=== PATIENT | female | born 1990 | race Caucasian/White ===

== ENCOUNTER 2019-10-18 04:30 | Emergency (ER) | payer BC, SELFPAY ==
[2019-10-18 04:30] VITALS: BP 121/73; PULSE 78; RESP 20; TEMP 36; O2SAT 95
--- NOTE | 2019-10-18 04:51 | ED.GENADULT ---
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 She started feeling poorly a few days ago with a fever up to 101. Tonight she started having urinary frequency, with dysuria and hematuria as well as some tenderness in her left flank and some suprapubic tenderness. No nausea, vomiting, CP, SOB or diarrhea. No trauma. Related Data Home Medications Medication Instructions Recorded Confirmed bupropion HCl [Wellbutrin SR] 150 mg PO DAILY 10/18/19 10/18/19 escitalopram oxalate [Lexapro] 20 mg PO DAILY 10/18/19 10/18/19 Allergies Allergy/AdvReac Type Severity Reaction Status Date / Time No Known Allergies Allergy Verified 10/18/19 04:51 Review of Systems Constitutional: Constitutional: Reports chills and Reports fever(s) Eyes: Eyes: Reports no additional eye complaints ENT: Reports system reviewed and no additional complaints, except as documented Cardiovascular: Cardiovascular: Reports no additional cardiovascular complaints Respiratory: Respiratory: Reports no additional respiratory complaints Gastrointestinal: Gastrointestinal: Reports as per HPI Genitourinary: Genitourinary: Reports as per HPI Musculoskeletal: Musculoskeletal: Reports no additional musculoskeletal complaints Integumentary/Breasts: Skin/Breast: Reports system reviewed and no additional complaints, except as docu Neurologic: Reports system reviewed and no additional complaints, except as documented Psychiatric: Psychiatric: Reports no additional psychiatric complaints Exam Const: General: no acute distress and alert Orientation/consciousness: patient oriented x3 Limitations: No altered mental status Other: Sitting comfortably on the bed without signs of distress HENMT: Other: normocephalic, atraumatic Eyes: Conjunctivae: conjunctivae normal Pupils: Equal, round and reactive pupils present Neck: Neck: normal visual inspection Resp: Effort & Inspection: normal respiratory effort, not labored and not tachypneic Auscultation: clear to auscultation bilaterally Cardio: Rate: regular rate Rhythm: regular rhythm Heart sounds: no murmurs GI: GI Palp: Yes Soft to palpation and No Tenderness to palpation present (GI) Skin: General skin exam: normal color Rashes: no rashes Neuro: General: patient oriented x3 and moves all extremities Extrem: General: normal to inspection Psych: Mental Status: mental status grossly normal Course Course Emergency Course: Linda was seen and evaluated. Ordered UA. UA showed 3+ blood, WBC, and leukocyte esterase as well as bacteria. She was given keflex 500mg in the ED and a script was sent for keflex 500mg QID. She was given return precautions and discharged. Vital Signs Vital signs: Vital Signs Temperature 36.0 C L 10/18/19 04:30 Pulse Rate 78 10/18/19 04:30 Respiratory Rate 20 10/18/19 04:30 Blood Pressure 121/73 10/18/19 04:30 Pulse Oximetry 95 10/18/19 04:30 Temperature 36.0 C L 10/18/19 04:30 Pulse Rate 78 10/18/19 04:30 Respiratory Rate 20 10/18/19 04:30 Blood Pressure 121/73 10/18/19 04:30 Pulse Oximetry 95 10/18/19 04:30 Medical Decision Making MDM Narrative Medical decision making narrative: While she did have some tenderness in the flank she was not in severe pain so I believe utetero or nephrolithiasis is unlikely. She was treated with QID dosing as she may have pyelonephritis as well as cystitis. Vital Signs Vital Signs: Vital Signs Temperature 36.0 C L 10/18/19 04:30 Pulse Rate 78 10/18/19 04:30 Respiratory Rate 20 10/18/19 04:30 Blood Pressure 121/73 10/18/19 04:30 Pulse Oximetry 95 10/18/19 04:30 Temperature 36.0 C L 10/18/19 04:3
[2019-10-18 04:54] LABS: Add Urine Microscopic? YES; Appearance Urine Cloudy (Clear); Bilirubin Urine Negative (Negative); Blood Urine 3+ (Negative); Color Urine Straw (Yellow); Glucose Urine UA Negative (Negative); Ketones Urine Negative (Negative); Leukocyte Esterase Ur 3+ (Negative); Nitrate Urine Negative (Negative); Protein Urine 1+ (Negative); Urobilinogen Urine 0.2 mg/dL (0.2-1.0)
[2019-10-18 04:59] LABS: RBC Urine >75 /hpf (0-2)
[2019-10-18 05:00] LABS: Squamous Epithelial Cell Urine Few /hpf (Few); WBC Urine >75 /hpf (0-3)
[2019-10-18 05:01] LABS: Bacteria Urine 2+ /hpf
[2019-10-18 05:10] VITALS: TEMP 36
[2019-10-18] MEDS: CEPHALEXIN 500 MG CAPSULE PO (05:10)
== END 2019-10-18 05:13 | disposition home or self-care (01) ==
PROVIDERS: Emergency Provider Family Medicine; PCP Internal Medicine
DX: N39.0 Urinary tract infection, site not specified (principal)
CPT/HCPCS: 81001; 99283; A9270

== ENCOUNTER 2019-10-21 11:29 | Outpatient (CLI) | payer BC, SELFPAY ==
--- NOTE | ~2019-10-21 | US_ITS ---
EXAMINATION: US retroperitoneal comp DATE: 10/21/2019 11:57 INDICATION: Painful hematuria TECHNIQUE: Multiple ultrasound grayscale images of the kidneys were obtained. COMPARISON: None. FINDINGS: The right kidney measures 11.0 x 3.9 x 5.9 cm. The left kidney measures 11.7 x 4.4 x 5.7 cm. The kidn eys demonstrate normal echogenicity. There is no hydronephrosis in either kidney. No stones identifi ed. The bladder is decompressed which limits evaluation. IMPRESSION: 1. Normal kidneys without hydronephrosis. Reviewed, dictated and finalized at location A.
== END 2019-10-21 11:30 | disposition home or self-care (01) ==
PROVIDERS: PCP Internal Medicine; Visit Provider Internal Medicine
DX: R31.9 Hematuria, unspecified (principal)
CPT/HCPCS: 76770

== ENCOUNTER 2020-04-06 11:58 | Outpatient (CLI) | payer BC, SELFPAY ==
[2020-04-06 23:09] LABS: SARS-CoV-2 RNA PCR Negative
== END 2020-04-06 11:59 | disposition home or self-care (01) ==
LOC: CHSLAB 12:02
PROVIDERS: PCP Internal Medicine; Visit Provider Clinical Nurse Specialist
DX: R50.9 Fever, unspecified (principal); Z20.828 Contact with and (suspected) exposure to other viral communicable diseases
CPT/HCPCS: 87635; C9803; U0003

== ENCOUNTER 2020-07-04 13:24 | Outpatient (CLI) | payer BC, SELFPAY ==
[2020-07-04 14:03] LABS: SARS-CoV-2 Ag Negative (Negative)
== END 2020-07-04 13:25 | disposition home or self-care (01) ==
LOC: CHSLAB 13:27
PROVIDERS: PCP Internal Medicine; Visit Provider Internal Medicine
DX: Z20.828 Contact with and (suspected) exposure to other viral communicable diseases (principal)
CPT/HCPCS: 87426; C9803

== ENCOUNTER 2020-07-11 17:10 | Outpatient (CLI) | payer BC, SELFPAY ==
[2020-07-11 17:55] LABS: SARS-CoV-2 Ag Negative (Negative)
== END 2020-07-11 17:11 | disposition home or self-care (01) ==
LOC: CHSLAB 17:12
PROVIDERS: PCP Internal Medicine; Visit Provider Internal Medicine
DX: Z20.822 Contact with and (suspected) exposure to COVID-19 (principal)
CPT/HCPCS: 87426; C9803

== ENCOUNTER 2020-12-13 18:47 | Outpatient (CLI) | payer BC, SELFPAY ==
[2020-12-13 20:33] LABS: SARS-CoV-2 RNA PCR Negative (Negative)
== END 2020-12-13 18:48 | disposition home or self-care (01) ==
LOC: CHSLAB 18:51
PROVIDERS: PCP Internal Medicine; Visit Provider Nurse Practitioner Family
DX: J06.9 Acute upper respiratory infection, unspecified (principal); Z20.822 Contact with and (suspected) exposure to COVID-19
CPT/HCPCS: C9803; U0003; U0005

== ENCOUNTER 2021-07-14 12:11 | Outpatient (CLI) | payer BC, SELFPAY ==
--- NOTE | ~2021-07-14 | US_ITS ---
EXAMINATION: US pelvic complete w TV EXAM DATE: 07/14/2021 12:44 INDICATION: Right fullness right adnexal fullness. TECHNIQUE: Pelvic transabdominal and transvaginal sonogram was performed. There are multiple graysca le and Doppler images available for interpretation. Comparison is made to prior examination from 12/27. FINDINGS: Uterus measures 8.1 x 3.6 x 4.9 cm, and is morphologically normal. Endometrial stripe shobha sures 10 mm, within normal limits. There is no free pelvic fluid. Right adnexa: The ovary measures 4.8 x 2.4 x 2.3 cm and is morphologically normal, contains the domin ant physiologic follicle measuring 2.4 cm. Ovarian vascular flow confirmed. Left adnexa: The ovary is not identified. There is no adnexal mass. IMPRESSION: 1. Unremarkable pelvic ultrasound exam. Reviewed, dictated and finalized at location A. 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
== END 2021-07-14 12:12 | disposition home or self-care (01) ==
LOC: CHSIMG 12:12
PROVIDERS: PCP Internal Medicine; Visit Provider Obstetrics & Gynecology
DX: R19.00 Intra-abdominal and pelvic swelling, mass and lump, unspecified site (principal)
CPT/HCPCS: 76830; 76856

== ENCOUNTER 2021-08-02 11:46 | Outpatient (CLI) | payer BC, SELFPAY ==
[2021-08-02 12:42] LABS: SARS-CoV-2 RNA PCR Negative (Negative)
== END 2021-08-02 11:47 | disposition home or self-care (01) ==
LOC: CHSLAB 11:47
PROVIDERS: PCP Internal Medicine; Visit Provider Internal Medicine
DX: J06.9 Acute upper respiratory infection, unspecified (principal); Z20.822 Contact with and (suspected) exposure to COVID-19
CPT/HCPCS: C9803; U0003; U0005

== ENCOUNTER 2021-10-18 11:51 | Outpatient (CLI) | payer BC, SELFPAY ==
--- NOTE | ~2021-10-18 | XR_ITS ---
EXAMINATION: XR thoracic spine 3V DATE: 10/18/2021 12:18 INDICATION: Mid back pain TECHNIQUE: AP, lateral and lateral swimmer's views of the thoracic spine were obtained. COMPARISON: None. FINDINGS: There is no fracture, dislocation, or subluxation. The vertebral body heights, alignment, a nd intervertebral disc spaces are normal. The paravertebral soft tissues are unremarkable. IMPRESSION: 1. Unremarkable thoracic spine. Reviewed, dictated and finalized at location F.
== END 2021-10-18 11:52 | disposition home or self-care (01) ==
LOC: CHSIMG 11:52
PROVIDERS: PCP Internal Medicine; Visit Provider Internal Medicine
DX: M54.6 Pain in thoracic spine (principal)
CPT/HCPCS: 72072

== ENCOUNTER 2022-01-05 10:04 | Outpatient (CLI) | payer BC, SELFPAY ==
--- NOTE | ~2022-01-05 | CT_ITS ---
EXAMINATION: CT soft tissue neck w con DATE: 01/05/2022 11:08 INDICATION: Dysphagia, abscess of the throat TECHNIQUE: Computed tomography (CT) of the neck was performed with 75 cc of Omnipaque 350 intravenous contrast. The dose-length product (DLP) was 341.62 mGy-cm. Automated exposure control and iterative reconstruction technique were employed. COMPARISON: None FINDINGS: No abscess is identified. There is mild cervical lymphadenopathy. The thyroid gland is unre markable. The submandibular and parotid glands are symmetric. There are no masses identified. The vas culature is patent. The airway is unremarkable. There are no osseous abnormalities. The orbits are un remarkable. The superior mediastinum is unremarkable. Visualized sinuses and mastoid air cells are we ll aerated. IMPRESSION: 1. No abscess identified. 2. Mild cervical lymphadenopathy, likely reactive. Reviewed, dictated and finalized at location B.
[2022-01-05 10:39] LABS: Basophils Absolute Auto 0.02 K/mm3 (0.00-0.10); Basophils Percent Auto 0.2 % (0.0-1.0); Eosinophils Absolute Auto 0.04 K/mm3 (0.02-0.50); Eosinophils Percent Auto 0.4 % (1.0-6.0); Hematocrit 35.4 % (35.0-49.0); Hemoglobin 11.6 g/dL (12.0-15.0); Immature Granulocyte Absolute 0.02 K/mm3 (0.00-0.00); Immature Granulocyte Percent A 0.2 % (0.0-0.0); Lymphocytes Absolute Auto 0.95 K/mm3 (1.10-4.50); Lymphocytes Percent Auto 10.4 % (18.0-42.0); Mean Corpuscular HGB Conc 32.8 g/dL (32.0-36.0); Mean Corpuscular Hemoglobin 28.2 pg (27.0-31.0); Mean Corpuscular Volume 85.9 fL (78.0-102.0); Mean Platelet Volume 9.1 fl (9.2-11.8); Monocytes Absolute Auto 0.73 K/mm3 (0.10-0.90); Neutrophils Absolute Auto 7.3 K/mm3 (1.7-7.2); Neutrophils Percent Auto 80.8 % (50.0-70.0); Platelet Count Result 246 K/mm3 (150-420); Red Blood Count 4.12 M/mm3 (4.20-5.40); Red Cell Distribution Width 13.5 % (11.6-14.4); White Blood Count 9.1 K/mm3 (4.8-10.8)
[2022-01-05 10:48] LABS: Alanine Aminotransferase 13 U/L (14-59); Albumin Level 3.6 g/dL (3.4-5.0); Alkaline Phosphatase 61 U/L (46-116); Anion Gap 11 mmol/L (8-16); Aspartate Amino Transferase 10 U/L (15-37); Bilirubin,Total 0.3 mg/dL (0.00-1.00); Blood Urea Nitrogen 11 mg/dL (7-18); Calcium 8.9 mg/dL (8.5-10.1); Carbon Dioxide 23 mmol/L (21-32); Chloride 102 mmol/L (98-108); Estimated Glomerular Filt Rate > 60; Glucose 200 mg/dL (70-99); Osmolality Calculated 287 mOsm/kg (285-295); Potassium 3.6 mmol/L (3.5-5.1); Sodium 136 mmol/L (136-145); Total Protein 7.3 g/dL (6.4-8.2)
[2022-01-05 11:06] LABS: Influenza A QL RT-PCR Negative (Negative); Influenza B QL RT-PCR Negative (Negative); SARS-CoV-2 RNA PCR Negative (Negative)
[2022-01-05 12:19] LABS: Hemoglobin A1C 5.5 % (<5.7)
== END 2022-01-05 10:05 | disposition home or self-care (01) ==
PROVIDERS: PCP Internal Medicine; Visit Provider Internal Medicine
DX: J39.1 Other abscess of pharynx (principal); Z20.822 Contact with and (suspected) exposure to COVID-19; R73.01 Impaired fasting glucose
CPT/HCPCS: 70491; 80053; 83036; 85025; 87040; 87081; 87502; 87880; C9803; Q9967; U0003; U0005

== ENCOUNTER 2022-01-06 10:04 | Outpatient (CLI) | payer BC, SELFPAY ==
--- NOTE | 2022-01-06 10:25 | PC.NURSE ---
rocephin 2 gram divided in 2 doses given in right and left hip, tolerated well
[2022-01-06] MEDS: cefTRIAXone 1 GM VIAL 2 GM IM (10:32)
[2022-01-06] MEDS: LIDOCAINE HCL 1% LOCAL INJ 10 ML VIAL 2.1 ML INFILTRATE (10:32)
--- NOTE | 2022-01-06 10:34 | PC.NURSE ---
dishcarge to home, denies needs,
== END 2022-01-06 10:05 | disposition home or self-care (01) ==
LOC: CHSTREATRM 10:05
PROVIDERS: PCP Internal Medicine; Visit Provider Internal Medicine
DX: J02.9 Acute pharyngitis, unspecified (principal)
CPT/HCPCS: 96372; J0696

== ENCOUNTER 2022-01-07 09:26 | Outpatient (CLI) | payer BC, SELFPAY ==
[2022-01-07] MEDS: cefTRIAXone 1 GM VIAL 2 GM IM (10:04)
[2022-01-07] MEDS: LIDOCAINE HCL 1% LOCAL INJ 10 ML VIAL 2.1 ML INFILTRATE (10:04)
== END 2022-01-07 09:27 | disposition home or self-care (01) ==
LOC: CHSTREATRM 09:28
PROVIDERS: PCP Internal Medicine; Visit Provider Internal Medicine
DX: J02.9 Acute pharyngitis, unspecified (principal)
CPT/HCPCS: 96372; J0696

== ENCOUNTER 2022-03-26 11:09 | Outpatient (CLI) | payer BC, SELFPAY ==
--- NOTE | ~2022-03-26 | XR_ITS ---
EXAMINATION: XR lumbar spine 2-3V DATE: 03/26/2022 11:34 INDICATION: Low back pain TECHNIQUE: Anteroposterior and lateral views of the lumbar spine, and cone-down lateral view of the l umbosacral junction were obtained. COMPARISON: 02/19/2013 FINDINGS: Bone alignment is normal. There is no fracture. The vertebral body heights and intervertebr al disc spaces are normal. Spina bifida occulta is again noted at L5. A large volume of colonic stool is present. IMPRESSION: 1. No acute osseous abnormality. Reviewed, dictated and finalized at location A.
== END 2022-03-26 11:10 | disposition home or self-care (01) ==
LOC: CHSLAB 11:10
PROVIDERS: PCP Internal Medicine; Visit Provider Internal Medicine
DX: M54.16 Radiculopathy, lumbar region (principal)
CPT/HCPCS: 72100

== ENCOUNTER 2022-03-31 06:40 | Outpatient (CLI) | payer BC, SELFPAY ==
--- NOTE | ~2022-03-31 | MR_ITS ---
EXAMINATION: MR lumbar spine wo con DATE: 03/31/2022 07:41 INDICATION: Low back pain. TECHNIQUE: Magnetic resonance imaging (MRI) of the lumbar spine was performed without intravenous con trast. Sequences included sagittal T2-weighted FSE, sagittal T2-weighted FS FSE, sagittal T1-weighted FSE, and axial T2-weighted FSE. COMPARISON: Lumbar spine radiographs 03/26/2022 FINDINGS: There is 3 degrees levocurvature of lumbar spine. Vertebral body heights are normal. There are Schmorl's nodes at multiple levels. Intervertebral disc heights are normal. The distal spinal cor d signal intensity is normal. The conus medullaris is at L2. The following disc levels are specifical ly discussed: L1-L2: The disc does not extend beyond the endplate margin. There is mild bilateral facet joint osteo arthritis. There is no neural foraminal stenosis. There is no central canal stenosis. L2-L3: The disc does not extend beyond the endplate margin. There is mild bilateral facet joint osteo arthritis. There is no neural foraminal stenosis. There is no central canal stenosis. L3-L4: The disc does not extend beyond the endplate margin. There is mild bilateral facet joint osteo arthritis. There is no neural foraminal stenosis. There is no central canal stenosis. L4-L5: The disc is mildly bulging. There is mild bilateral facet joint osteoarthritis. There is mild bilateral neural foraminal stenosis. There is no central canal stenosis. L5-S1: The disc does not extend beyond the endplate margin. There is mild bilateral facet joint osteo arthritis. There is no neural foraminal stenosis. There is no central canal stenosis. IMPRESSION: 1. Mild lumbar spondylosis. Reviewed, dictated and finalized at location A. IMPRESSION: 1. Mild lumbar spondylosis.
== END 2022-03-31 06:41 | disposition home or self-care (01) ==
LOC: CHSIMG 06:41
PROVIDERS: PCP Internal Medicine; Visit Provider Internal Medicine
DX: M54.50 Low back pain, unspecified (principal); M54.16 Radiculopathy, lumbar region
CPT/HCPCS: 72148

== ENCOUNTER 2022-04-10 08:10 | Outpatient (RCR) | payer BC, SELFPAY ==
--- NOTE | 2022-04-10 09:07 | PTOPEVAL1 ---
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 she reports she was at home on 03/14/22 lifting a lot of heavy rocks and has had pain since. she reports she has had no injections. she reports she did have a dose pack that helped a little, and OTC NSAIDS. she reports she has had an MRI here in [place]. she reports she has increased pain with bending, lifting. she reports walking and standing for too long will cause increased pain. she reports she is improved since her initial injury. MRI shows mild disc bulging at L4-5 and mild bilateral neural foraminal stenosis at L4-5. mild bilateral facet OA throughout. patient reports she initially had symptoms down the R LE down to the top of the foot /big toe. she reports this is gone now. Reported Pain Level Pain Score 1: Self Report Assessment PT Clinical Summary mrs. pereyra presents to skilled PT services for evaluation and treatment of lower back pain. she presents with signs and symptom of a healing discoid injury to the lower back from a lifting/ flexion injury at home. she continues to present with pain, core weakness, and decreased activity tolerance/endurance. she would do well to attend skilled PT to improve her objective/functional deficits and progress towards a return to her prior level functional activity performance/ quality of life. Plan of Care Interventions Electrical Stimulation,Hot Pack/Cold Pack,Manual Therapy,Neuro Re-education,Patient/Caregiver Educati,Therapeutic Activities,Therapeutic Exercise PT Services Indicated Yes Treatment Frequency and 2x weekly for 8 visits Duration These treatments will address the objective and functional deficits as defined above. The patient will be advanced safely and appropriately in order for the patient to progress towards his/her prior level of function. Additional exercises will be introduced and as well as a comprehensive home exercise program upon discharge, if needed, ?to ensure carryover of functional gains achieved in the clinic. This treatment plan has been reviewed and agreement upon by the patient.
== END 2022-04-17 23:59 | disposition home or self-care (01) ==
LOC: CHSPT 08:10
PROVIDERS: PCP Internal Medicine; Visit Provider Internal Medicine
DX: M54.9 Dorsalgia, unspecified (principal)
CPT/HCPCS: 97014; 97110; 97161; G0283

== ENCOUNTER 2023-12-26 01:18 | Day surgery (SDC) | payer BC, SELFPAY ==
[2023-12-25 15:31] VITALS: BMI 23.1
[2023-12-26 14:38] VITALS: BP 118/80; PULSE 74; RESP 18; TEMP 37.1; O2SAT 100
[2023-12-26 14:43] VITALS: BMI 23.6
[2023-12-26] MEDS: LACTATED RINGERS 1,000 ML 150 ML IV CONT (14:53)
--- NOTE | 2023-12-26 15:07 | P.PNAN_ITS ---
Anes - Initial Pre Proc Eval Procedure: Operation Date: 12/26/23 16:00 Proposed Procedures p Esophagogastroduodenoscopy - Kwasi Whitney MD Date/Time: 12/26/23 15:07 Surgeon: Kwasi Whitney MD Pre Op Diagnosis: Dysphagia Patient Data Age: 33 Gender: F Height: 1.63 m Weight: 62.4 kg Allergies Allergy/AdvReac Type Severity Reaction Status Date / Time Sulfa (Sulfonamide Allergy Mild RASH Verified 12/26/23 14:41 Antibiotics) Home Medications Medication Instructions Recorded Confirmed Type quetiapine 50 mg tablet (Seroquel) 150 mg PO QHS 07/12/21 12/26/23 History alprazolam 0.25 mg tablet 0.25 mg PO HS 12/25/23 12/25/23 History cetirizine 10 mg tablet (Zyrtec) 10 mg PO DAILY 12/25/23 12/25/23 History lamotrigine 150 mg tablet 150 mg PO DAILY 12/25/23 12/25/23 History montelukast 10 mg tablet 10 mg PO HS 12/25/23 12/25/23 History omeprazole 40 mg capsule,delayed 40 mg PO DAILY 12/25/23 12/26/23 History release Patient hx anesthesia problems: none Family hx anesthesia problems: none Results Review: All pre-operative results and documents have been reviewed as part of the pre- operative evaluation. [facility] Past Medical History Medical History Miscarriage x 2 SVT (supraventricular tachycardia) Vaginal delivery Surgical History Surgical History History of cardiac radiofrequency ablation Status post hysteroscopic surgical removal of uterine septum Family History Family History Father Hypertension Social History Social History Smoking status: Never smoker Alcohol intake: current Substance use: never Substance use type: does not use Lack of Transportation: No Lack of Food: Never True Current Housing: I Have Housing Concerned About Future Housing: No Difficulty Paying Gas/Electric Bills: No Difficulty Paying for Meds: No Currently Unemployed: No Education: Bachelor's Degree Difficulty w/ Childcare or Family Care: No Living arrangements: with family Occupation/Education: occupation Gender identity (if verbalized by the patient): Female Sexual Orientation (if Verbalized by the Patient): Straight or Heterosexual Spiritual care concerns: No Anes - Eval Final PreProcedure Day of Procedure 12/26/23 15:07 Patient weight: normal Heart: regular rate and rhythm Lungs: clear to auscultation Airway: Mallampati scale class II Neurological: alert and oriented Last oral intake: >/= 8 hours ASA classification: II Emergent: no Anesthetic plan: proceed Anesthesia type and monitoring: general GIVS and standard monitoring Results Review: All pre-operative results and documents have been reviewed as part of the pre- operative evaluation. Pt w hx of SVT, s/p ablation approx 2013 w good results. Pt active w walking, no cp or sob. Now EGD for dysphagia. Informed Consent: The patient's anesthetic plan and its attendant risks and benefits were discussed with the patient/family/POA. Questions were solicited and answers provided to the satisfaction of the patient/family/POA.
--- NOTE | 2023-12-26 15:43 | PM.HPGS ---
History of Present Illness History of Present Illness Consent: Risks, benefits, and alternatives have been discussed and questions answered. Patient agrees to proceed with procedure. Chief complaint: Dysphagia Narrative: Linda Landry is a 33 year old female here for first EGD. She is a nurse working here. She says that had sore throat for over a month and having difficulty swallowing since, about 1 week ago started omeprazole probably some relief but can not tell for sure. Review of Systems Review of Systems: All systems reviewed & are unremarkable except as noted in HPI and below PMFSH Past Medical History Medical History (Updated 12/26/23 @ 15:44 by Kwasi Whitney MD) Miscarriage x 2 Sore throat SVT (supraventricular tachycardia) Vaginal delivery Surgical History Surgical History History of cardiac radiofrequency ablation Status post hysteroscopic surgical removal of uterine septum Family History Family History Father Hypertension Social History Social History Smoking status: Never smoker Alcohol intake: current Substance use: never Substance use type: does not use Lack of Transportation: No Lack of Food: Never True Current Housing: I Have Housing Concerned About Future Housing: No Difficulty Paying Gas/Electric Bills: No Difficulty Paying for Meds: No Currently Unemployed: No Education: Bachelor's Degree Difficulty w/ Childcare or Family Care: No Living arrangements: with family Occupation/Education: occupation Gender identity (if verbalized by the patient): Female Sexual Orientation (if Verbalized by the Patient): Straight or Heterosexual Spiritual care concerns: No Meds Home Medications and Allergies Home Medications Medication Instructions Recorded Confirmed Type quetiapine 50 mg tablet (Seroquel) 150 mg PO QHS 07/12/21 12/26/23 History alprazolam 0.25 mg tablet 0.25 mg PO HS 12/25/23 12/25/23 History cetirizine 10 mg tablet (Zyrtec) 10 mg PO DAILY 12/25/23 12/25/23 History lamotrigine 150 mg tablet 150 mg PO DAILY 12/25/23 12/25/23 History montelukast 10 mg tablet 10 mg PO HS 12/25/23 12/25/23 History omeprazole 40 mg capsule,delayed 40 mg PO DAILY 12/25/23 12/26/23 History release Allergies Allergy/AdvReac Type Severity Reaction Status Date / Time Sulfa (Sulfonamide Allergy Mild RASH Verified 12/26/23 14:41 Antibiotics) Exam Const: General: comfortable and no acute distress HENMT: Face/Nose/Sinus: Normal nares present Eyes: General: appearance normal, both eyes and all related structures Neck: Neck: no JVD Resp: Auscultation: clear to auscultation bilaterally Cardio: Rate: regular rate Rhythm: regular rhythm GI: Inspection: non-distended GI Palp: Yes Soft to palpation Skin: General skin exam: normal color Neuro: General: gait normal Speech: normal speech Extrem: General: normal to inspection Psych: Mental Status: mental status grossly normal Assessment and Plan Assessment and plan (1) Sore throat: Code(s): J02.9 - Acute pharyngitis, unspecified Status: Acute Assessment and Plan: egd to assess
[2023-12-26 16:18] VITALS: BP 107/71; PULSE 65; RESP 18; O2SAT 100
[2023-12-26 16:28] VITALS: BP 119/84; PULSE 64; RESP 26; O2SAT 100
[2023-12-26 16:38] VITALS: BP 123/52; PULSE 67; RESP 20; O2SAT 100
== END 2023-12-26 16:44 | disposition home or self-care (01) ==
PROVIDERS: PCP Internal Medicine; Visit Provider Internal Medicine Gastroenterology
PROC: 0DJ08ZZ Inspection of Upper Intestinal Tract, Via Natural or Artificial Opening Endoscopic (ICD-10-PCS; CPT 43235; principal; 2023-12-26 16:00)
DX: K21.00 Gastro-esophageal reflux disease with esophagitis, without bleeding (principal); K29.50 Unspecified chronic gastritis without bleeding
CPT/HCPCS: 43239; 88305; J2704; J7120

== ENCOUNTER 2024-01-01 08:04 | Outpatient (CLI) | payer BC, SELFPAY ==
--- NOTE | ~2024-01-01 | CT_ITS ---
EXAMINATION: CT soft tissue neck w con DATE: 01/01/2024 08:35 INDICATION: Right neck lump. TECHNIQUE: Computed tomography (CT) of the neck was performed with 75 mL Omnipaque-350 intravenous co ntrast. Automated exposure control and iterative reconstruction technique were employed. The dose-connor gth product was 389.51 mGy-cm. COMPARISON: CT neck 01/05/2022 FINDINGS: There is mild scarring at the lung apices. There are no pathologically enlarged lymph nodes . The cervical carotid arteries are normal. There is mild mucosal thickening in left maxillary sinus. There is severe cervical spondylosis, worst at C6-C7. IMPRESSION: 1. No abnormal neck mass or lymphadenopathy. Reviewed, dictated and finalized at location A.
== END 2024-01-01 08:05 | disposition home or self-care (01) ==
LOC: CHSIMG 08:06
PROVIDERS: PCP Internal Medicine; Visit Provider Nurse Practitioner Family
DX: R13.10 Dysphagia, unspecified (principal)
CPT/HCPCS: 70491; Q9967

== ENCOUNTER 2024-02-25 09:32 | Outpatient (CLI) | payer BC, SELFPAY ==
--- NOTE | ~2024-02-25 | XR_ITS ---
MODIFIED ESOPHAGRAM HISTORY: Dysphagia. TECHNIQUE: Modified barium esophagram was performed on 02/25/2024. I administered fluoroscopy and perf ormed the exam with speech pathologist. Patient was seated for lateral fluoroscopic imaging for edie stion of thin liquids, pudding, solids and quantified amounts, followed by thin liquids in uncontroll ed amounts. This was recorded on tape. A single fluoroscopic spot image was also recorded. The DAP fo r this procedure was 0.687 Gycm2. The amount of fluoroscopy time used during this procedure was 1.1 m inutes. FINDINGS: Oral stage: Adequate function. Pharyngeal stage: Adequate function. Cervical/esophageal stage: Adequate function. IMPRESSION: Patient tolerated regular consistency oral feedings in the upright position. Please cecelia elate with speech pathologist findings and specific feeding recommendations. Reviewed, dictated and finalized at location A. IMPRESSION: Patient tolerated regular consistency oral feedings in the upright position. Please correlate with speech pathologist findings and specific feedi ng recommendations.
--- NOTE | 2024-02-25 10:19 | REHSTMBS ---
Assessment and note entered by Dimple Hitchcock, [place] [employer] Modified Barium Swallow Evaluation Feeding Type Recommended Oral Food Consistency Regular, Level 7 Liquid Consistency Thin (0) ST Clinical Summary MODIFIED BARIUM SWALLOW STUDY This patient was seen for a Modified Barium Swallow study at the request of her physician. Patient reports a sore throat for months and that she feels that her swallow is slow and is concerned about a motility issue. She reports that she has difficulty swallowing pills and that she does feel items either catching in the area of the valleculae (toward the top of the throat) along with a feeling that something is always there. Patient admits to recent diagnoses of esophagitis/ gastritis and Laryngopharyngeal Reflux (LPR). Patient was viewed in the lateral position to the level of C5/C6. She was presented with thin liquid contrast medium per cup and also per straw, pudding mixed with semi-solid contrast medium, and then fruit cocktail pieces and elmira cracker pieces both coated with the semi-solid mixture. Additionally, she was given a barium pill with water. Of note, she required multiple sips of water to move the pill from the mouth to the pharynx, with quick movement through the pharynx. The delayed oral transit time was not observed on other presentations. Results suggest the patient's swallowing skills are within normal limits. She was instructed in the use of head flexion when swallowing pills and other [id number] or dry foods, with addition of water to the mouth prior to attempting to take pills in order to prevent pills from sticking to the tongue. She was also instructed to follow her current GERD guidelines to reduce the effects of reflux and she will be provided with written list of suggestions to reduce symptoms of LPR. No further Speech Therapy is indicated at this time. Thank you for this referral.
== END 2024-02-25 09:33 | disposition home or self-care (01) ==
LOC: ANHIMG 09:34
PROVIDERS: PCP Internal Medicine; Visit Provider Nurse Practitioner Family
DX: K21.9 Gastro-esophageal reflux disease without esophagitis (principal)
CPT/HCPCS: 92611

== ENCOUNTER 2024-03-10 10:21 | Outpatient (CLI) | payer BC, SELFPAY ==
[2024-03-10 10:36] LABS: Hemoglobin 12.3 g/dL (12.0-15.0); Mean Corpuscular HGB Conc 32.4 g/dl (32-36); Mean Corpuscular Hemoglobin 27.8 pg (26-34); Platelet Count Result 283 k/mm3 (150-375); Red Blood Count 4.42 M/mm3 (4.2-5.4); Red Cell Distribution Width 13.2 % (11.5-14.5); White Blood Count 5.1 K/mm3 (4.5-10.0)
[2024-03-10 10:51] LABS: Alanine Aminotransferase 18 U/L (6-35); Albumin Level 4.8 g/dL (3.5-5.1); Alkaline Phosphatase 48 U/L (38-126); Anion Gap 10 mmol/L (4-12); Aspartate Amino Transferase 28 U/L (14-36); Bilirubin,Total 0.4 mg/dL (0.2-1.3); Blood Urea Nitrogen 18 mg/dL (7-17); Calcium 9.5 mg/dL (8.4-10.2); Carbon Dioxide 28 mmol/L (22-30); Chloride 100 mmol/L (98-107); Cholesterol 235 mg/dL (0-200); Estimated Glomerular Filt Rate > 60; Glucose 106 mg/dL (65-110); HDL Direct 76 mg/dL; Potassium 4.1 mmol/L (3.4-5.0); Sodium 138 mmol/L (137-145); Triglycerides 88 mg/dL (<150)
[2024-03-10 11:03] LABS: LDL Cholesterol Direct 119 mg/dL
[2024-03-10 11:19] LABS: Thyroid Stimulating Hormone 0.703 uIU/mL (0.465-4.680)
== END 2024-03-10 10:22 | disposition home or self-care (01) ==
PROVIDERS: PCP Internal Medicine; Visit Provider Obstetrics & Gynecology
DX: Z00.00 Encounter for general adult medical examination without abnormal findings (principal)
CPT/HCPCS: 36415; 80053; 80061; 84443; 85027

== ENCOUNTER 2024-04-21 13:15 | Outpatient (CLI) | payer BC, SELFPAY ==
--- NOTE | ~2024-04-21 | US_ITS ---
EXAM: PELVIC ULTRASOUND HISTORY: PELVIC PAIN/ABDOMINAL PAIN COMPARISON: 07/14/2021. FINDINGS: UTERUS: 8.4 x 5.6 x 4.2 cm. The uterus is anteverted and anteflexed. The endometrial complex measures 7.5 mm and is trilaminar RIGHT OVARY: The right ovary is unremarkable in size measuring 2.6 x 2.4 x 3.0 cm. Arterial and venous flow are identified. Within the right ovary is an anechoic avascular focus with increased through transmission measuring 1 7 x 18 x 17 mm, consistent with a simple cyst which no further follow-up is needed. LEFT OVARY: Despite prolonged interrogation, the left ovary was not visualized, due to overlying sofia l gas. No free fluid is identified within the pelvis. IMPRESSION: Simple cyst within the right ovary. Despite prolonged interrogation, the left ovary was not visualized. Reviewed, dictated and finalized at location A.
== END 2024-04-21 13:16 | disposition home or self-care (01) ==
LOC: CHSIMG 13:17
PROVIDERS: PCP Internal Medicine; Visit Provider Nurse Practitioner Family
DX: R10.2 Pelvic and perineal pain (principal); N83.291 Other ovarian cyst, right side
CPT/HCPCS: 76830

== ENCOUNTER 2024-04-24 12:32 | Outpatient (CLI) | payer BC, SELFPAY ==
--- NOTE | ~2024-04-24 | CT_ITS ---
CLINICAL INDICATION: Lower abdominal and pelvic pain, left greater than right COMPARISON: . TECHNIQUE: An enhanced CT of the abdomen and pelvis was performed utilizing multislice spiral Edu[employer] ue reconstructed at 5 mm slice thickness. Coronal and sagittal reconstructions were performed. This CT examination was performed utilizing dose reduction techniques. DLP: 285 mGy-cm FINDINGS/OBSERVATIONS: Visualized lower thorax:The bilateral lung bases are clear. The heart is of normal size, without pericardial effusion. A small hiatal hernia is present. Liver: The liver is not enlarged, and enhances homogeneously. Gallbladder and biliary system: The gallbladder is decompressed. Pancreas: The pancreas enhances homogeneously, and is without ductal dilatation Spleen: The spleen is not enlarged and demonstrates homogeneous attenuation Kidneys: The bilateral kidneys enhance symmetrically. No hydronephrosis or renal calculi. Adrenal glands: Unremarkable Gastrointestinal tract: Fecal stasis within the distended colon Appendix:The air-filled appendix is of normal caliber (axial series, image 117). Vasculature: Markedly enlarged left and right gonadal veins are present, extending into the pelvis an d multiple varicosities. These findings are suggestive of pelvic congestion syndrome, for which clini giancarlo correlation is needed. Lymph nodes: Scattered nonpathologically enlarged lymph nodes within the mesentery, a nonspecific fin ding. Pelvic structures:The uterus is anteverted and anteflexed. The bladder is decompressed. A 2 cm well-circumscribed rounded focus of decreased attenuation is identified within the right ovary , statistically a cyst, for which no further follow-up is needed. Body wall and musculoskeletal: A small fat-containing umbilical hernia is present No significant degenerative disease is identified within the lumbosacral spine. IMPRESSION: Findings consistent with pelvic congestion syndrome, for which clinical correlation is needed. Significant fecal stasis throughout the distended colon. Reviewed, dictated and finalized at location A. IMPRESSION: Findings consistent with pelvic congestion syndrome, for which clinical correla tion is needed. Significant fecal stasis throughout the distended colon.
== END 2024-04-24 12:33 | disposition home or self-care (01) ==
LOC: CHSIMG 12:33
PROVIDERS: PCP Internal Medicine; Visit Provider Nurse Practitioner Family
DX: R10.9 Unspecified abdominal pain (principal); R10.2 Pelvic and perineal pain
CPT/HCPCS: 74177; Q9967

== ENCOUNTER 2025-03-16 08:13 | Outpatient (CLI) | payer BC, SELFPAY ==
[2025-03-16 08:59] LABS: Add Urine Microscopic? YES; Appearance Urine Cloudy (Clear); Glucose Urine UA Negative (Negative); Leukocyte Esterase Ur 3+ LEU/UL (Negative); Nitrate Urine Negative (Negative); Non Pathogenic Casts 0-2; Specific Grav Ur 1.007 (1.001-1.035)
--- OUTSIDE RECORDS SUMMARY | 2025-03-16 09:01 | XMS_ITS | Clinical Summary ---
Author Organization [employer] (formerly [facility]) [address] - [address] [facility] 3rd [place] [address] Phone Care Team Providers Care Brazer Controlled Atmospheric Furnace Name Role Phone Areli Hanley MD Primary Care Provider + Allergies Active Allergy Reactions Criticality Noted Date Comments Sulfa (Sulfonamide Antibiotics) Rash Low 03/02 Medications vit-iron fum-folic ac ( S) 27 mg iron- 0.8 mg Tablet Take 1 Tablet by mouth daily. Active doxylamine-pyrid oxine, vit B6, (BONJESTA) 20-20 mg Tab,IR & Delay Rel,Multiphasic Take by mouth daily. Active aspirin (HEAVEN CHEWABLE) 81 mg Tablet, Chewable Take 162 mg by mouth daily. 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 Active escitalopram oxalate (LEXAPRO) 20 mg tablet Take 20 mg by mouth daily. 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, antepartum 03/20/2018 Family History Medical History Relation Name Comments Hypertension Father Relation Name Status Comments Father Social History Tobacco Use Types Packs/Day Years Used Date Smoking Tobacco: Never Smokeless Tobacco: Never Alcohol Use Standard Drinks/Week Comments No 0 (1 standard drink = 0.6 oz pur e alcohol) Comments No Sex and Gender Information Value Date Recorded Sex Assigned at Not on file 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 Gender Identity Not on file Sexual Orientation Not on file Occupation Industry Job Start Date Job End Date RN Not on file Not on file Not on file Last Filed Vital Signs Vital Sign Reading Time Taken Comments Blood Pressure 114/70 03/20/2018 8:47 AM CDT Pulse - - Temperature - - Respiratory Rate - - Oxygen Saturation - - Inhaled Oxygen Concentration - - Weight 63.5 kg (140 lb) 03/20/2018 8:47 AM CDT Height 162.6 cm (5' 4) 03/20/2018 8:47 AM CDT Body Mass Index 24.03 03/20/2018 8:47 AM CDT Plan of Treatment Health Maintenance Due Date Last Done Comments DTAP/TDAP/TD VACCINES (1 - Tdap) 2008 HEPATITIS B VACCINES (1 of 3 - 19+ 3-dose series) 06/01 HPV/Cotest (21-29) 2010 HPV VACCINES (1 - 3-dose SCDM series) 2016 CERVICAL CANCER SCREENING 2019 HPV/Cotest (30-65) 2019 PAP SMEAR 2019 INFLUENZA VACCINE (#1) 2025 Insurance BLUE ACCESS/TRUE BLUE PPO BCBS BLUE ACCESS/TRUE BLUE PPO Care Teams Brazer Controlled Atmospheric Furnace Relationship Specialty Start Date End Date Areli Hanley MD [address] [place] [phone] PCP - General Internal Medicine 01/30/12
--- OUTSIDE RECORDS SUMMARY | 2025-03-16 09:01 | XMS_ITS | Clinical Summary ---
Author Organization [facility] Address [facility] [facility] [place] [address] Care Team Providers Care Planting Material Carrier Name Role Phone Areli Hanley MD Primary Care Provider [phone] Source Comments [facility] Affiliates and Associated Physician Practices is amultiple site organization consisting of ambulatory clinics and hospital sitesin [place], [place], [place] and [place]. This disclosure is being madepursuant to the Care Everywhere program and may not contain all information available regarding this patient. 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 Gender Identity Not on file Sexual Orientation Not on file Plan of Treatment Health Maintenance Due Date Last Done Comments HIV SCREENING 2004 HEPATITIS C SCREENING 06/23/2007 DTAP/TDAP/TD VACCINES (1 - Tdap) 2008 HEPATITIS B VACCINE (1 of 3 - 19+ 3-dose series) 2008 PAP SMEAR 2010 HPV VACCINE (1 - 3-dose SCDM series) 2016 DEPRESSION SCREENING 07/01/2024 COVID-19 VACCINE ( - 2023-2 5 season) 2025 INFLUENZA VACCINE (#1) 2025 ZOSTER VACCINE (1 of 2) 2039 HIB VACCINE Aged Out No longer eligi ble based on patient's age to complete this topic MENINGOCOCCAL (Group B) VACC INE SHARED DECISION-MAKING Aged Out No longer eligibl e based on patient's age to complete this topic MENINGOCOCCAL GROUPS A/C/Y/W VACCINE Aged Out No longer eligible b ased on patient's age to complete this topic PNEUMOCOCCAL VACCINE Aged Out No long er eligible based on patient's age to complete this topic Insurance ANTHEM * Guarantor: AMARILIS AYOUB Account Type Relation to Patient Date of Phone Billing Address Personal/Family [address] [place] [address] SELF PAY NO INSURANCE Member Subscriber Plan / Payer (Ef fective for All Dates) Name:Evongab Amarilis Jesus Member ID:Not on file Relation to Subscriber:Not on file Name:ANITRAAMARILIS Subscriber ID:Not on file Address: [address] [place] [address] Payer ID:Not on file Group ID:Not on file Type:Self Pay Address: [place], [place] ANTHEM * Guarantor: AMARILIS AYOUB Account Type Relation to Patient Date of Phone Billing Address Personal/Family [address] [place] [address] SELF PAY NO INSURANCE Member Subscriber Plan / Payer (Ef fective for All Dates) Name:Amarilis Ayoub Member ID:Not on file Relation to Subscriber:Not on file Name:AMARILIS AYOUB Subscriber ID:Not on file Address: [address] [place] [address] Payer ID:Not on file Group ID:Not on file Type:Self Pay Address: [place], [place] * Guarantor: AMARILIS AYOUB Account Type Relation to Patient Date of Phone Billing Address Personal/Family [address] [place] [address] SELF PAY NO INSURANCE Member Subscriber Plan / Payer (Ef fective for All Dates) Name:Amarilis Ayoub Member ID:Not on file Relation to Subscriber:Not on file Name:AMARILIS AYOUB Subscriber ID:Not on file Address: [address] [place] [address] Payer ID:Not on file Group ID:Not on file Type:Self Pay Address: [place], [place] Care Teams Planting Material Carrier Relationship Specialty Start Date End Date Areli Hanley MD [facility] - General 02/18/18
== END 2025-03-16 08:14 | disposition home or self-care (01) ==
LOC: ANHLAB 08:14
PROVIDERS: PCP Internal Medicine; Visit Provider Nurse Practitioner Obstetrics & Gynecology
DX: R30.0 Dysuria (principal)
CPT/HCPCS: 81001; 87077; 87086; 87186

== ENCOUNTER 2025-03-31 08:01 | Outpatient (CLI) | payer BC, SELFPAY ==
--- OUTSIDE RECORDS SUMMARY | 2025-03-31 08:12 | XMS_ITS | Clinical Summary ---
Author Organization [facility] Address [facility] [facility] [place] [address] Care Team Providers Care Cement Cutter Name Role Phone Areli Hanley MD Primary Care Provider [phone] Source Comments [facility],non-[facility] Affiliates and Associated Physician Practices is amultiple site organization consisting of ambulatory clinics and hospital sitesin [place], [place], [place] and [place]. This disclosure is being madepursuant to the Care Everywhere program and may not contain all information available regarding this patient. 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 Gender Identity Not on file Sexual Orientation [...] Patient Date of Phone Billing Address Personal/Family [address] [place] [address] SELF PAY NO INSURANCE Member Subscriber Plan / Payer (Ef fective for All Dates) Name:Evongab Amarilis Jesus Member ID:Not on file Relation to Subscriber:Not on file Name:ANITRAAMARILIS Subscriber ID:Not on file Address: [address] [place] [address] Payer ID:Not on file Group ID:Not on file Type:Self Pay Address: [place], [place] * Guarantor: AMARILIS AYOUB Account Type Relation to Patient Date of Phone Billing Address Personal/Family [address] [place] [address] SELF PAY NO INSURANCE Member Subscriber Plan / Payer (Ef fective for All Dates) Name:Amarilis Ayoub Member ID:Not on file Relation to Subscriber:Not on file Name:AMARILIS AYOUB Subscriber ID:Not on file Address: [address] [place] [address] Payer ID:Not on file Group ID:Not on file Type:Self Pay Address: [place] * Guarantor: AMARILIS AYOUB Account Type Relation to Patient Date of Phone Billing Address Personal/Family [address] [place] [address] SELF PAY NO INSURANCE Member Subscriber Plan / Payer (Ef fective for All Dates) Name:Amarilis Ayoub Member ID:Not on file Relation to Subscriber:Not on file Name:AMARILIS AYOUB Subscriber ID:Not on file Address: [address] [place] [address] Payer ID:Not on file Group ID:Not on file Type:Self Pay Address: [place], [place] Care Teams Cement Cutter Relationship Specialty Start Date End Date Areli Hanley MD [facility] - General 02/18/18
--- OUTSIDE RECORDS SUMMARY | 2025-03-31 08:12 | XMS_ITS | Clinical Summary ---
Author Organization [facility] Address [address] [place] [address] Care Team Providers Care Loan Secretary Name Role Phone Unavailable Primary Care Provider Unavailabl e Social History Tobacco Use Types Packs/Day Years Used Date Smoking Tobacco: Never Comments Unknown Sex and Gender Information Value Date Recorded Sex Assigned at Not on file Legal Sex Female 12:12 AM CDT Gender Identity Not on file Sexual Orientation Not on file Last Filed Vital Signs Vital Sign Reading Time Taken Comments Blood Pressure 100/60 11/04/2014 8:56 AM CDT Pulse 72 11/04/2014 8:56 AM CDT Temperature - - Respiratory Rate 16 11/04/2014 8:56 AM CDT Oxygen Saturation - - Inhaled Oxygen Concentration - - Weight 59.4 kg (131 lb) 11/04/2014 8:56 AM CDT Height 162.6 cm (5' 4) 11/04/2014 8:56 AM CDT Body Mass Index 22.49 11/04/2014 8:56 AM CDT Plan of Treatment Health Maintenance Due Date Last Done Comments Cervical Cancer Screening Pa p Smear (Age 30 to 64) Every 3 Years 1989 Annual Physical 1992 Hepatitis C 2007 DTaP, Tdap and Td Vaccines ( 1 - Tdap) 2008 Hepatitis B Vaccines (1 of 3 - 19+ 3-dose series) 2008 HPV Vaccines (1 - 3-dose SCD M series) 2016 Cervical Cancer Screening Pa p with HPV Testing (Age 30 to 64) Every 5 Years 2019 Cervical Cancer Screening with HPV 2019 COVID-19 Vaccine (2023-2 5 season) 2025 Meningococcal B Vaccine Aged Out No l onger eligible based on patient's age to complete this topic Meningococcal Vaccine Aged Out No amada anthony eligible based on patient's age to complete this topic Pneumococcal Vaccine: Pediat rics (0 to 5 Years) and At-Risk Patients (6 to 49 Years) Aged Out No longer eligible b ased on patient's age to complete this topic RSV Immunizations Under 20 Months Aged Out No longer eligible based on patient's age to complete this topic
--- OUTSIDE RECORDS SUMMARY | 2025-03-31 08:12 | XMS_ITS | Encounter Summary ---
Author Organization [facility] Address [facility] [place] [address] Care Team Providers Care Mysql Dba Name Role Phone Unavailable Primary Care Provider Unavailabl e Encounter Details Date Type Department Care Team (Late st Contact Info) Description 09/14/2017 Abstract [facility] CONVERSION [address] [place] [address] , Generic Conversion, Social History Tobacco Use Types Packs/Day Years Used Date Smoking Tobacco: Never Comments Unknown Sex and Gender Information Value Date Recorded Sex Assigned at Not on file Legal Sex Female 12:12 AM CDT Gender Identity Not on file Sexual Orientation Not on file documented as of this encounter Plan of Treatment Not on file documented as of this encounter Visit Diagnoses Not on filedocumented in this encounter
--- OUTSIDE RECORDS SUMMARY | 2025-03-31 08:12 | XMS_ITS | Clinical Summary ---
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
[2025-03-31 08:22] LABS: Hematocrit 39.6 % (35.0-49.0); Hemoglobin 12.7 g/dL (12.0-15.0); Immature Granulocyte Percent A 0.4 % (0.0-0.0); Lymphocytes Absolute Auto 2.09 K/mm3 (1.10-4.50); Mean Corpuscular HGB Conc 32.1 g/dL (32-36); Mean Corpuscular Hemoglobin 27.5 pg (27.0-31.0); Mean Corpuscular Volume 85.7 fL (78.0-102.0); Nucleated Red Blood Cells Absolute Auto 0.00 K/mm3 (0.00-0.00); Nucleated Red Blood Cells Perc 0.0 % (0-0.0); Platelet Count Result 316 K/mm3 (150-420); Red Blood Count 4.62 M/mm3 (4.20-5.40); White Blood Count 5.3 K/mm3 (4.8-10.8)
[2025-03-31 09:10] LABS: Alanine Aminotransferase 17 U/L (6-35); Albumin Level 4.6 g/dL (3.5-5.1); Alkaline Phosphatase 50 U/L (38-126); Anion Gap 11 mmol/L (4-12); Aspartate Amino Transferase 22 U/L (14-36); Bilirubin,Total 0.5 mg/dL (0.2-1.3); Blood Urea Nitrogen 18 mg/dL (7-17); Calcium 10.1 mg/dL (8.4-10.2); Carbon Dioxide 25 mmol/L (22-30); Chloride 107 mmol/L (98-107); Cholesterol 212 mg/dL (0-200); Estimated Glomerular Filt Rate > 60; Glucose 89 mg/dL (65-110); HDL Direct 64 mg/dL; Osmolality Calculated 296 mOsm/kg (285-295); Potassium 4.5 mmol/L (3.4-5.0); Sodium 143 mmol/L (137-145); Total Protein 7.6 g/dL (6.3-8.2); Triglycerides 102 mg/dL (<150)
[2025-03-31 09:25] LABS: Free T4 Free Thyroxine 1.17 ng/dL (0.78-2.19)
[2025-03-31 09:39] LABS: Thyroid Stimulating Hormone 1.210 uIU/mL (0.465-4.680)
== END 2025-03-31 08:02 | disposition home or self-care (01) ==
LOC: CHSLAB 08:02
PROVIDERS: PCP Internal Medicine; Visit Provider Nurse Practitioner Family
DX: Z00.00 Encounter for general adult medical examination without abnormal findings (principal); Z13.6 Encounter for screening for cardiovascular disorders; K21.9 Gastro-esophageal reflux disease without esophagitis; J31.0 Chronic rhinitis
CPT/HCPCS: 36415; 80053; 80061; 84439; 84443; 85025